=== PATIENT | female | born 1995 | race Caucasian/White ===

== ENCOUNTER 2025-02-25 07:15 | Emergency (ER) | payer OTHER ==
[~2025-02-25] VITALS: Ht 170.2 cm; Wt 69.7 kg
[2025-02-25 08:40] LABS: AMPHETAMINES LEVEL URINE NEGATIVE (NEGATIVE); BARBITURATES URINE NEGATIVE (NEGATIVE); CANNABINOIDS URINE NEGATIVE (NEGATIVE); COCAINE METABOLITE URINE NEGATIVE (NEGATIVE); METHADONE URINE NEGATIVE (NEGATIVE); OPIATES URINE NEGATIVE (NEGATIVE); PHENCYCLIDINE URINE NEGATIVE (NEGATIVE)
[2025-02-25 08:41] LABS: BENZODIAZEPINES URINE NEGATIVE (NEGATIVE)
[2025-02-25 09:15] LABS: PLATELET COUNT, AUTOMATED 299 10^3/uL (150-450)
[2025-02-25] MEDS ORDERED: NORGTAB2 PO (09:24)
[2025-02-25] MEDS ORDERED: HOME MED LIST COMPLETE! XX SCH (09:25)
[2025-02-25 09:41] LABS: ETHYL ALCOHOL (ETHANOL) 0.158 % (0.000-0.010)
[2025-02-25 09:42] LABS: SALICYLATE LEVEL < 3.0 MG/DL (<30)
[2025-02-25 09:43] LABS: ALT/SGPT 13 U/L (7.0-40); AST/SGOT 21 U/L (<34); CALCIUM LEVEL 8.6 MG/DL (8.5-10.1); CARBON DIOXIDE LEVEL 24 MMOL/L (20-31); CHLORIDE LEVEL 104 MMOL/L (98-107); CREATININE FOR GFR 0.71 MG/DL (0.55-1.30); GLOMERULAR FILTRATION RATE > 90.0 (>60); HCG, SERUM QUANTITATIVE < 2.6 MIU/ML (<4.2); POTASSIUM SERUM 4.5 MMOL/L (3.5-5.1); SODIUM LEVEL 141 MMOL/L (136-145)
[2025-02-25 14:48] VITALS: BP 158/74; TEMP 98.4; O2SAT 100
== END 2025-02-25 15:03 | disposition home or self-care (01) ==
LOC: M ED 07:15
DX: F43.0 Acute stress reaction (principal); F10.129 Alcohol abuse with intoxication, unspecified; Z79.899 Other long term (current) drug therapy

== ENCOUNTER 2025-06-17 11:55 | Emergency (ER) | payer OTHER ==
[~2025-06-17] VITALS: Ht 170.2 cm; Wt 68.2 kg
[~2025-06-17 11:55] MED LIST: NORGTAB2 PO
[2025-06-17 14:34] VITALS: BP 112/76; TEMP 97.3; O2SAT 99
== END 2025-06-17 14:35 | disposition home or self-care (01) ==
LOC: M ED 11:55
DX: S90.121A Contusion of right lesser toe(s) without damage to nail, initial encounter (principal); W01.190A Fall on same level from slipping, tripping and stumbling with subsequent striking against furniture, initial encounter; Y92.009 Unspecified place in unspecified non-institutional (private) residence as the place of occurrence of the external cause; Y93.9 Activity, unspecified; Y99.9 Unspecified external cause status